=== PATIENT | female | born 1975 | race Caucasian/White ===

== ENCOUNTER 2016-11-22 10:48 | Emergency (ER) | payer OTHER ==
[2016-11-22] MEDS ORDERED: IPRATROPIUM-ALBUTEROL 3 ML NEB INHALATION STA (11:49)
--- NOTE | 2016-11-22 11:50 | ED ---
General Adult HPI - General Chief complaint: Upper Respiratory Infection Stated complaint: POSS PNEUMONIA Time Seen by Provider: 11/22/16 11:43 Source: patient, RN notes reviewed Mode of arrival: ambulatory Limitations: no limitations - History of Present Illness Initial comments: Patient 41-year-old female who presents emergency room today with a chief complaint of cough congestion over the last 5 days. She does not that she saw her family doctor 2 days ago started on antibiotics and a steroid. Does admit to history of COPD. States she still having cough congestion does not feel like she's getting any better. Does admit to positive sputum production it's been clear in color. Patient denies any other complaints associated symptoms currently. Patient denies any recent fever, chills, shortness of breath, chest pain, back pain, abdominal pain, nausea or vomiting, numbness or tingling, dysuria or hematuria, constipation or diarrhea, headaches or visual changes, or any other complaints. - Related Data Home Medications Medication Instructions Recorded Confirmed Azithromycin [Zithromax Z-pack] 0 mg PO DIRECTED 11/22/16 11/22/16 Benzonatate [Tessalon Perles] 100 mg PO TID PRN 11/22/16 11/22/16 Budesonide/Formoterol Fumarate 2 puff INHALATION RT-BID 11/22/16 11/22/16 [Symbicort 80-4.5 Mcg Inhaler] Labetalol [Trandate] 200 mg PO BID 11/22/16 11/22/16 predniSONE 10 mg PO DIRECTED 11/22/16 11/22/16 Previous Rx's Medication Instructions Recorded Albuterol Nebulized [Ventolin 2.5 mg INHALATION Q4H PRN 10 Days 11/22/16 Nebulized] Levofloxacin [Levaquin] 500 mg PO DAILY 7 Days 11/22/16 Allergies Allergy/AdvReac Type Severity Reaction Status Date / Time Penicillins Allergy Unknown Verified 11/22/16 11:56 Childhood Review of Systems ROS Statement: Those systems with pertinent positive or pertinent negative responses have been documented in the HPI. ROS Other: All systems not noted in ROS Statement are negative. Past Medical History Past Medical History: COPD, Hyperlipidemia, Hypertension History of Any Multi-Drug Resistant Organisms: None Reported Past Surgical History: Section Additional Past Surgical History / Comment(s): esure Past Psychological History: No Psychological Hx Reported Smoking Status: Former smoker Past Alcohol Use History: None Reported Past Drug Use History: None Reported General Exam - General Exam Comments Initial Comments: General: The patient is awake and alert, in no distress, and does not appear acutely ill. Eye: Pupils are equal, round and reactive to light, extra-ocular movements are intact. No nystagmus. There is normal conjunctiva bilaterally. No signs of icterus. Ears, nose, mouth and throat: There are moist mucous membranes and no oral lesions. Neck: The neck is supple, there is no tenderness or JVD. Cardiovascular: There is a regular rate and rhythm. No murmur, rub or gallop is appreciated. Respiratory: Bilateral expiratory wheeze. respirations are non-labored, breath sounds are equal. No stridor, rales, or rhonchi. Musculoskeletal: Normal ROM, no tenderness. Strength 5/5. Sensation intact. Pulses equal bilaterally 2+. Neurological: A&O x 3. CN II-XII intact, There are no obvious motor or sensory deficits. Coordination appears grossly intact. Speech is normal. Skin: Skin is warm and dry and no rashes or lesions are noted. Psychiatric: Cooperative, appropriate mood & affect, normal judgment. Limitations: no limitations Course Vital Signs 11/22/16 11/22/16 11/22/16 11:39 12:04 12:08 Temperature 99.9 F H Pulse Rate 90 84 80 Respiratory 18 16 Rate Blood Pressure 165/79 O2 Sat by Pulse 94 L 94 L Oximetry 11/22/16 11/22/16 11/22/16 12:19 12:24 12:41 Temperature 97.9 F Pulse Rate 112 H 80 92 Respiratory 16 16 Rate Blood Pressure 151/91 O2 Sat by Pulse 93 L 97 Oximetry Medical Decision Making - Medical Decision Making Case discussed in detail with attending physician Dr. martel. Patient reexamined at this time shows no signs of distress. Patient feeling better after breathing treatment here in the emergency room. Patient's x-ray reviewed does show possible infiltrate of left lower molar. Patient will have antibiotics changed to Levaquin. Patient will be given a prescription for nebulizer with treatments at home. Advised follow-up the family doctor over the next 2 days or return if symptoms increase or worsen. Patient states understanding. Disposition Clinical Impression: Community acquired pneumonia Disposition: HOME SELF-CARE Condition: Good Instructions: Community Acquired Pneumonia (ED) Additional Instructions: Please use medication as discussed. Please follow-up with family doctor in the next 2 days of symptoms have not improved. Please return to emergency room if the symptoms increase or worsen or for any other concerns. Prescriptions: Albuterol Nebulized [Ventolin Nebulized] 2.5 mg INHALATION Q4H PRN 10 Days PRN Reason: Cough Levofloxacin [Levaquin] 500 mg PO DAILY 7 Days Time of Disposition: 12:53
[2016-11-22 12:05] VITALS: RESP 16
--- NOTE | 2016-11-22 12:11 | XR ---
EXAMINATION TYPE: XR chest 2V DATE OF EXAM: 11/22/2016 11:56 AM COMPARISON: NONE HISTORY: Cough and congestion TECHNIQUE: Frontal and lateral views of the chest are obtained. FINDINGS: There is no focal air space opacity, pleural effusion, or pneumothorax seen. The cardiac silhouette size is within normal limits. There is some bronchial wall thickening. Some linear areas of increased attenuation are present. The osseous structures are intact. IMPRESSION: Correlate for bronchitis, there may be some lingular atelectasis, correlate to exclude p neumonia, follow-up as indicated.
[2016-11-22 12:42] VITALS: BP 151/91; PULSE 92; TEMP 97.9
== END 2016-11-22 13:16 | disposition home or self-care (01) ==
LOC: EC 10:48
DX: J18.9 Pneumonia, unspecified organism (principal); J44.9 Chronic obstructive pulmonary disease, unspecified; I10 Essential (primary) hypertension; Z88.0 Allergy status to penicillin; Z87.891 Personal history of nicotine dependence; Z79.899 Other long term (current) drug therapy
CPT/HCPCS: 71020; 94640; 99283